=== PATIENT | male | born 1985 | race Caucasian/White ===

== ENCOUNTER 2020-05-25 12:57 | Outpatient (CLI) | payer OTHER, SELFPAY ==
--- NOTE | 2020-05-25 13:10 | XR_ITS ---
WS: [id number] Lumbar spine, 3 views, 05/25/2020 Clinical Data: LOW BACK PAIN Comparison: None. Findings: No compression fractures or subluxation is seen. No disc space narrowing is seen. The transverse proc esses and SI joints are normal. XR/XR lumbar spine 2-3V* [id number] Impression: Negative lumbar spine.
== END 2020-05-25 12:58 | disposition home or self-care (01) ==
LOC: RAD 13:03
PROVIDERS: PCP Family Medicine; Visit Provider Nurse Practitioner
DX: Z13.89 Encounter for screening for other disorder (principal); M54.5 Low back pain
CPT/HCPCS: 72100

== ENCOUNTER 2024-09-19 13:42 | Observation (INO) | payer OTHER, SELFPAY ==
[2024-09-19] VITALS (14 sets, daily range): BP systolic 103–166; BP diastolic 67–107; PULSE 81–161; RESP 12–22; TEMP 36.3–36.9; O2SAT 93–100; BMI 35.9; BMI 36.6
--- NOTE | 2024-09-19 13:45 | ECG_ITS ---
[facility] Test Date: 2024-09-19 Pat Name: Vamshi Reid Department: Room: Gender: Male Automatic Clipper: : 1985 Requested By: Logan Quarles Order Number: [id number] Pardo MD: Nando Jaimes M.D. Measurements Intervals [place]ard Rate: 153 P: 0 HI: 0 QRS: -20 QRSD: 64 T: 56 QT: 254 QTc: 406 Interpretive Statements ATRIAL FIBRILLATION WITH RAPID VENTRICULAR RESPONSE Compared to ECG 11/11/2018 08:43:48 Sinus rhythm no longer present Electronically Signed On 09-19-2024 16:34:12 GAS TURBINE MECHANIC by Nando Jaimes M.D. [email or web address]
--- NOTE | 2024-09-19 13:50 | XR_ITS ---
WS: [id number] Portable AP upright chest, 09/19/2024 Clinical Data: palpitations Comparison: Two-view chest, 11/11/2018 Findings: No nodules, masses or effusions are seen. The heart is normal. The pulmonary vascularity is not increased. No pneumonia or pneumothorax is seen. Monitor leads are on the chest wall. XR/XR chest 1V portable [id number] Impression: Negative chest.
[2024-09-19 13:58] LABS: Basophils % 0.5 %; Eosinophils # 0.1 10^3/uL (0.0-0.8); Eosinophils % 1.6 %; Hematocrit 50.7 % (37-53); Lymphocytes # 2.8 10^3/uL (0.8-4.8); Lymphocytes % 36.5 %; Mean Corpuscular HGB Conc 32.9 g/dL (30-55); Mean Corpuscular Hemoglobin 29.9 pg (27-33); Mean Corpuscular Volume 90.7 fl (82-101); Monocytes # 0.6 10^3/uL (0.2-0.9); Monocytes % 8.3 %; Neutrophils # 4.04 10^3/uL (1.8-7.7); Neutrophils % 52.7 %; Nucleated Red Blood Cells % 0 %; Platelet Count 227 10^3/cmm (157-399); Red Blood Count 5.59 10^6/uL (3.85-5.65); Red Cell Distribution Width 13.2 % (12.1-15.1); White Blood Count 7.67 10^3/uL (3.29-11.43)
--- NOTE | 2024-09-19 14:01 | W.ED.ARRPALP ---
HPI - Arrhythmia/Palpitations General: Chief Complaint: Arrhythmia/Palpitations Stated Complaint: afib (sent by bc) Time Seen by Provider: 09/19/24 13:48 Source: patient Mode of arrival: ambulatory Limitations: no limitations History of Present Illness: 39-year-old male states that he has had cough congestion over the last 2 days. He states he feels like he has the flu and went to an urgent care and they done an EKG he was found to be in A-fib. He has no history of A-fib he is in A-fib with RVR here as well. He denies any vomiting or diarrhea. Associated symptoms: Deny nausea or vomiting Related Data Home Medications Medication Instructions Recorded Confirmed No Known Home Medications 09/19/24 09/19/24 Allergies Allergy/AdvReac Type Severity Reaction Status Date / Time No Known Allergies Allergy Verified 09/19/24 13:51 Review of Systems Const: Reports: fever(s), chills and body aches; Denies: change in appetite ENMT: Denies: throat pain or dental pain Card: Denies: chest pain Resp: Reports: non-productive cough; Denies: dyspnea GI: Denies: abdominal pain, nausea, vomiting or diarrhea Musc: Denies: neck pain or back pain Skin/Breast: Denies: rash Neuro: Denies: headache(s) Physical Exam Const: COMMON NORMALS: no acute distress, patient oriented x3 and healthy appearing HENMT: COMMON NORMALS: normocephalic and atraumatic HEAD & SCALP: normocephalic and atraumatic Neck/C-Spine: COMMON NORMALS: full ROM and supple Chest: COMMONS NORMALS: normal inspection of the chest Resp: COMMON NORMALS: normal respiratory effort Cardio: COMMON NORMALS: No murmurs present (Cardio) RHYTHM: abnormal rhythm irregularly irregular GI: COMMON NORMALS: Normal to inspection, nondistended, normoactive bowel sounds present, Soft to palpation, non-tender and no masses PALPATION: Yes Soft to palpation Extremity: COMMON NORMALS: normal to inspection and full ROM Neuro: COMMON NORMALS: patient oriented x3, moves all extremities and no focal motor deficits Psych: COMMON NORMALS: mental status grossly normal, Normal thought process present and cooperative THOUGHT PROCESS: Normal thought process present Skin: COMMON NORMALS: no rashes or lesions noted and no wounds GENERAL SKIN EXAM: no rashes or lesions noted Course Vital Signs: Vital signs: Vital Signs Temperature 98.4 F 09/19/24 13:49 Pulse Rate 120 H 09/19/24 15:28 Respiratory Rate 17 09/19/24 15:28 Blood Pressure 107/72 09/19/24 15:28 Pulse Oximetry 97 09/19/24 15:28 Oxygen Delivery Me thod Room Air 09/19/24 15:28 MDM - Arrhythmia/Palpitations Medical Decision Making Patient presents here with A-fib with RVR did have a history of on a Cardizem drip he is feeling improved spoke to hospitalist will admit as this is new onset. Medical Records I reviewed the patient's medical records. Lab Data I reviewed the patient's lab results. 09/19/24 13:52 09/19/24 13:52 Radiology Impressions Chest X-Ray 09/19/24 13:50 Impression: Negative chest. Laboratory Results WBC 7.67 10^3/uL (3.29-11.43) 09/19/24 13:52 RBC 5.59 10^6/uL (3.85-5.65) 09/19/24 13:52 Hgb 16.70 g/dL (11.27-16.99) 09/19/24 13:52 Hct 50.7 % (37-53) 09/19/24 13:52 MCV 90.7 fl (82-101) 09/19/24 13:52 MCH 29.9 pg (27-33) 09/19/24 13:52 MCHC 32.9 g/dL (30-55) 09/19/24 13:52 RDW 13.2 % (12.1-15.1) 09/19/24 13:52 Plt Count 227 10^3/cmm (157-399) 09/19/24 13:52 MPV 9.0 fL (7.4-10.4) 09/19/24 13:52 Neut % (Auto) 52.7 % 09/19/24 13:52 Lymph % (Auto) 36.5 % 09/19/24 13:52 Rich % (Auto) 8.3 % 09/19/24 13:52 Eos % (Auto) 1.6 % 09/19/24 13:52 Baso % (Auto) 0.5 % 09/19/24 13:52 Neut # (Auto) 4.04 10^3/uL (1.8-7.7) 09/19/24 13:52 Lymph # (Auto) 2.8 10^3/uL (0.8-4.8) 09/19/24 13:52 Rich # (Auto) 0.6 10^3/uL (0.2-0.9) 09/19/24 13:52 Eos # (Auto) 0.1 10^3/uL (0.0-0.8) 09/19/24 13:52 Baso # (Auto) 0.0 10^3/uL (0.0-0.1) 09/19/24 13:52 Nucleated RBC % (auto) 0 % 09/19/24 13:52 Nucleated RBCs # 0.0 /100WBC 09/19/24 13:52 Sodium 139 mmol/L (136-145) 09/19/24 13:52 Potassium 4.2 mmol/L (3.5-5.1) 09/19/24 13:52 Chloride 101 mmol/L (98-107) 09/19/24 13:52 Carbon Dioxide 26 mmol/L (22-29) 09/19/24 13:52 Anion Gap 16.2 (5-19) 09/19/24 13:52 BUN 19 mg/dL (6-20) 09/19/24 13:52 Creatinine 0.9 mg/dL (0.7-1.2) 09/19/24 13:52 GFR Calculation 94.4 mL/min (90-130) 09/19/24 13:52 Glucose 107 mg/dL (65-115) 09/19/24 13:52 Calculated Osmolality 291 mOsm/kg (285-295) 09/19/24 13:52 Calcium 9.3 mg/dL (8.5-10.5) 09/19/24 13:52 Total Bilirubin 0.4 mg/dL (0.15-1.2) 09/19/24 13:52 AST 27 U/L (0-40) 09/19/24 13:52 ALT 41 U/L (0-41) 09/19/24 13:52 Alkaline Phosphatase 79 U/L (40-130) 09/19/24 13:52 Total Protein 7.6 g/dL (6.6-8.7) 09/19/24 13:52 Albumin 4.6 g/dL (3.5-5.2) 09/19/24 13:52 Globulin 3.0 g/dL (1.3-4.6) 09/19/24 13:52 Coronavirus (PCR) Negative (Negative) 09/19/24 14:05 Influenza A (PCR) Negative (Negative) 09/19/24 14:05 Influenza Type B (PCR) Negative (Negative) 09/19/24 14:05 RSV (PCR) Negative (Negative) 09/19/24 14:05 All radiology interpretation(s) finalized by discharge EKG Data EKG 1: I personally reviewed and interpreted this EKG as follows: EKG interpretation date: 09/19/24 EKG interpretation time: 13:45 Interpretation: afib with rvr hr [address] elevation qrs 64 qtc 341 Other EKG comments: Chest X-Ray 09/19/24 13:50 Impression: Negative chest. Discharge Plan Discharge Patient Disposition: Admitted As Inpatient Clinical Impression: Atrial fibrillation with RVR Condition: Stable Coding Level of Care Code ED Brand Development Manager for Seth Villegas
[2024-09-19] MEDS: dilTIAZem 5 mg/mL SDV 5 mL 20 MG IVP (14:04)
[2024-09-19 14:13] LABS: Alanine Aminotransferase 41 U/L (0-41); Albumin Level 4.6 g/dL (3.5-5.2); Alkaline Phosphatase 79 U/L (40-130); Anion Gap 16.2 (5-19); Aspartate Amino Transferase 27 U/L (0-40); Blood Urea Nitrogen 19 mg/dL (6-20); Calcium 9.3 mg/dL (8.5-10.5); Carbon Dioxide 26 mmol/L (22-29); Chloride 101 mmol/L (98-107); Creatinine Clr Calc Pharmacy 140.3432; Glomerular Filtration Rate 94.4 mL/min (90-130); Glucose 107 mg/dL (65-115); Osmolality Calculated 291 mOsm/kg (285-295); Potassium 4.2 mmol/L (3.5-5.1); Sodium 139 mmol/L (136-145); Total Bilirubin 0.4 mg/dL (0.15-1.2); Total Protein 7.6 g/dL (6.6-8.7)
--- NOTE | 2024-09-19 14:19 | ECG_ITS ---
[facility] Test Date: 2024-09-19 Pat Name: Vamshi Reid Department: Room: Gender: Male Neurosurgical Nurse: : 1985 Requested By: Logan Quarles Order Number: [id number] Char MD: Nando Jaimes M.D. Measurements Intervals [place] Rate: 93 P: 0 ND: 0 QRS: -9 QRSD: 72 T: 46 QT: 318 QTc: 396 Interpretive Statements ATRIAL FIBRILLATION LOW QRS VOLTAGE IN PRECORDIAL LEADS [QRS DEFLECTION < 1.0 mV IN CHEST LEADS] Compared to ECG 09/19/2024 13:45:04 Low QRS voltage now present Electronically Signed On 09-19-2024 16:34:05 SOIL SCIENCE PROFESSOR by Nando Jaimes M.D. [email or web address]
[2024-09-19] MEDS: dilTIAZem 100 MG in sodium chloride 0.9% (add-van) 100 ML IV (14:51)
[2024-09-19 15:02] LABS: Covid PCR NEGATIVE (Negative); Influenza A NEGATIVE (Negative); Influenza B NEGATIVE (Negative); Respiratory Syncytial Virus Ce NEGATIVE (Negative)
--- NOTE | 2024-09-19 15:50 | USCV_ITS ---
Franklin Vamshi Age: 39 Gender: M : 1985 Exam Date: 09/19/2024 19:18 Ordering Phys: Georges Zuniga MD Technologist: JUAN JOSE [place] [facility] [place] new [place]ib, palpitations BP: 123 / 77 HR: 85 Rhythm: Sinus Technical Quality: Adequate MEASUREMENTS (Male / Female) Normal Values 2D ECHO LV Diastolic Diameter PLAX 3.6 cm 4.2 - 5.9 / 3.9 - 5.3 cm IVS Diastolic Thickness 1.7 cm 0.6 - 1.0 / 0.6 - 0.9 cm IVS Systolic Thickness 2.1 cm LVPW Diastolic Thickness 1.2 cm 0.6 - 1.0 / 0.6 - 0.9 cm LVPW Systolic Thickness 1.6 cm LVOT Diameter 2.1 cm LV Ejection Fraction 2D Teich 69.7 % LV Ejection Fraction MOD 4C 54.5 % LV Ejection Fraction MOD 2C 61.0 % LV Ejection Fraction 2C AL 62.8 % LA Diameter 2.3 cm Aorta at Sinotubular Diameter 3.3 cm IVC Diameter 1.6 cm M-MODE LA Ao Ratio MM 0.9 AV Cusp Separation MM 2.3 cm DOPPLER AV Peak Velocity 102.0 cm/s LVOT Peak Velocity 94.0 cm/s AV Area Cont Eq vti 3.8 cm squared AV Area Cont Eq pk 3.2 cm squared MV Peak Velocity 76.0 cm/s MV Area PHT 4.8 cm squared Mitral E to A Ratio 1.3 TV Peak E Velocity 54.0 cm/s PV Peak Velocity 69.0 cm/s FINDINGS Left Ventricle Normal left ventricular size and systolic function, EF 60%. No regional wall motion abnormalities. Right Ventricle The right ventricle is normal in size and function. Right Atrium The right atrium is normal in size. Left Atrium The left atrium is normal in size. Mitral Valve No gross abnormalities noted Aortic Valve No gross abnormalities noted Tricuspid Valve No gross abnormalities noted Pulmonic Valve No gross abnormalities noted Pericardium Normal pericardium without effusion. Aorta Normal ascending aorta dimension. IVC The inferior vena cava appears normal. CONCLUSIONS Normal left ventricular size and systolic function, EF 60%. No regional wall motion abnormalities. Normal cardiac chamber sizes. No gross valvular abnormalities. No intracardiac shunts by color-flow Doppler examination. No pericardial effusion No similar previous studies are available for comparison Dr Yariel Garrido MD [facility] (Electronically Signed) Final Date: 20 September 2024 01:04 S
--- NOTE | 2024-09-19 15:53 | P.HP_ITS ---
Providers/Chief Complaint 2 Chief Complaint: afib (sent by ) History of Present Illness Vamshi Reid is a 39 year old male with no significant past medical history who presents [facility] for chest palpitations. Patient tells me that for the last 10 days he has been dealing with a cough, sinus congestion, he was prescribed prednisone, azithromycin, Tessalon Perles without improvement. He presented to physicians office, when he was found to have atrial fibrillation and sent to [facility] for evaluation. Denies a prior history of atrial fibrillation, denies any Sudafed use, but has been using cough medications. Denies chest pain, denies any shortness of breath no cardiovascular history. He does report drinking 1 glass of alcohol daily, does report possible history of sleep apnea, trouble falling asleep, awakes 12 times a night, has significant snoring, he has gained weight he tells me, denies any drug use Review of Systems 2 Const: Reports: fatigue and malaise Card: Reports: chest pain Resp: Reports: non-productive cough; Denies: dyspnea GI: Denies: abdominal pain Medications/Allergies Home Medications Medication Instructions Recorded Confirmed Last Taken Type No Known Home Medications 09/19/24 09/19/24 Unknown History Allergies Allergy/AdvReac Type Severity Reaction Status Date / Time No Known Allergies Allergy Verified 09/19/24 13:51 PFSH Acute 2 PFSH: Medical History (Updated 09/19/24 @ 15:55 by Georges Zuniga MD) No pertinent past medical history Surgical History (Updated 09/19/24 @ 15:55 by Georges Zuniga MD) No pertinent past surgical history Family History Father CAD (coronary artery disease) Social History (Updated 09/19/24 @ 15:55 by Georges Zuniga MD) Smoking and tobacco/nicotine status: never used tobacco/nicotine Alcohol intake: current Alcohol intake frequency: 0-2 Drinks per Day Substance/Drug Use: never Vitals/I&O/Wt Last Vital Signs Temp 98.4 F 09/19/24 13:49 Pulse 120 H 09/19/24 15:28 Resp 17 09/19/24 15:28 BP 107/72 09/19/24 15:28 Pulse Ox 97 09/19/24 15:28 O2 Del Method Room Air 09/19/24 15:28 09/19/24 09/19/24 09/19/24 06:59 14:59 22:59 Intake Total 3.167 / 3.167 Balance 3.167 / 3.167 Weight last 48 hrs Weight 113.398 kg Physical Exam 2 Const: COMMON NORMALS: no acute distress and patient oriented x3 HENMT: COMMON NORMALS: normocephalic HEAD & SCALP: normocephalic Neck/C-Spine: COMMON NORMALS: no JVD Resp: COMMON NORMALS: normal respiratory effort, No retractions, No use of accessory muscles and clear to auscultation bilaterally AUSCULTATION: clear to auscultation bilaterally Cardio: COMMON NORMALS: regular rate, regular rhythm, S1 normal heart sound present and S2 normal heart sound present RATE: tachycardic RHYTHM: a bnormal rhythm irregularly irregular HEART SOUNDS: S1 normal heart sound present and S2 normal heart sound present GI: COMMON NORMALS: Normal to inspection, nondistended, normoactive bowel sounds present, Soft to palpation and non-tender Extremity: COMMON NORMALS: no calf tenderness and no pedal edema Neuro: COMMON NORMALS: patient oriented x3, CN's II-XII intact bilaterally and moves all extremities Psych: COMMON NORMALS: mental status grossly normal Data 09/19/24 13:52 09/19/24 13:52 A&P Assessment and plan (1) Atrial fibrillation with RVR: Plan Atrial fibrillation with rapid ventricular response Plan -Continue Cardizem drip ? Transition to p.o. Cardizem ? TSH # Troponin series # Cardiac echo ? Aspirin ? Lovenox for DVT prophylaxis Full code Attestations 2 Medical Necessity Statement*: Patient requires hospitalization for atrial fibrillation with rapid regular response, outpatient with observation Diagnoses Atrial fibrillation with RVR I48.91
[2024-09-19 15:55] LABS: Troponin(5th) Baseline 7 ng/L (0-15)
[2024-09-19 16:10] LABS: INR 0.92 (0.8-1.2)
[2024-09-19 16:34] LABS: NT Pro B Type Natriuretic Pept 177 pg/mL (0-125); Procalcitonin 0.05 ng/mL (0-0.5); Thyroid Stimulating Hormone 3.77 uIU/mL (0.27-4.20)
[2024-09-19 16:36] LABS: Troponin 5 2HR 6.84 ng/L (0-15)
[2024-09-19 16:38] LABS: Troponin 5 2HR Delta -0.16 ABS# (0-10)
[2024-09-19] MEDS: aspirin 81 mg EC Tablet PO (17:00)
[2024-09-19] MEDS: dilTIAZem 30 mg Tablet PO ×2 (17:00→22:09)
[2024-09-19] MEDS: pantoprazole 40 mg SDV IVP (17:01)
[2024-09-19] MEDS: enoxaparin 40 mg/0.4 mL Syringe SUBCUT (17:01)
--- NOTE | 2024-09-19 17:14 | ECG_ITS ---
[facility] Date: 2024-09-19 Pat Name: Vamshi Reid Department: Room: ICU02 Gender: Male Electronic News Gathering Camera Person: : 1985 Requested By: Logan Quarles Order Number: [id number] Char MD: Yariel Garrido M.D. Measurements Intervals Anita Rate: 105 P: 0 [place]: 0 QRS: -11 QRSD: 74 T: 46 QT: 311 QTc: 413 Interpretive Statements ATRIAL FIBRILLATION WITH RAPID VENTRICULAR RESPONSE ABNORMAL RHYTHM ECG Compared to ECG 09/19/2024 14:19:48 No significant changes Electronically Signed On 09-20-2024 17:52:31 PRORATE CLERK by Yariel Garrido M.D. [id number]
[2024-09-19 17:19] LABS: Chol HDL Ratio 4.52 mg/dL (1.0-5.00); Cholesterol 226 mg/dL (0-200); HDL Cholesterol 50 mg/dL (60-100); LDL Cholesterol Calculated 139 mg/dL (50-129); LDL HDL Ratio 2.78 RATIO (0.00-3.22); Triglycerides 184 mg/dL (0-150)
--- NOTE | 2024-09-19 18:00 | PC.NURSE ---
PATIENT REFUSES CHANGE INTO GOWN PRIOR TO ICU ARRIVAL. NURSE EDUCATES PATIENT WILL HAVE TO CHANGE WHEN GETTING TO ICU, PATIENT VERBALIZED OK. PATIENT ASSESSMENTS DONE. PATIENT DENIES SKIN ISSUES OR ANY OTHER AREAS OF IMMEDIATE CONCERN. PATIENT STATES DOES FEEL RELIEF FROM CHEST PRESSURE, JUST TIRED.
[2024-09-19 19:21] LABS: Bilirubin Urine Negative (Negative); Blood Urine Negative (Negative); Glucose Urine UA 2+ (Normal); Ketones Urine Trace (Negative); Leukocyte Esterase Urine Negative (Negative); Nitrate Urine Negative (Negative); Protein Urine Trace (Negative); Specific Gravity, Urine 1.028 (1.005-1.030); Urine Appearance Clear (CLEAR); Urine Color Yellow (Yellow); pH Urine 5.5 (5-7)
[2024-09-19 19:23] LABS: Add Urine Microscopic? YES; Bacteria Urine None Seen /hpf; Hyaline Casts Urine 1.21 /lpf; RBC Urine 0-2 /hpf (0-2); Squamous Epithelial Cell Urine 0-5 /hpf (0-5); WBC Urine 0-5 /hpf (0-5)
[2024-09-19 19:39] LABS: Estmated Average Glucose 134; Hemoglobin A1C 6.3 % (4.0-6.0)
[2024-09-19] MEDS: dilTIAZem 100 MG in sodium chloride 0.9% (add-van) 100 ML 7.5 MG IV (23:58)
[2024-09-20] VITALS (14 sets, daily range): BP systolic 103–144; BP diastolic 67–102; PULSE 72–102; RESP 15–32; TEMP 36.4–37; O2SAT 86–98
--- NOTE | 2024-09-20 00:29 | PC.NURSE ---
Patient's O2 sats dropping to 85%. Patient is snoring. Asked patient to turn to his side. Saturations coninued in the 80 intermitantly. Patient still snoring while lying on his left side. Patient fitted with nasal cannula at 2.
[2024-09-20] MEDS: dilTIAZem 30 mg Tablet PO ×2 (04:10→10:54)
[2024-09-20 05:07] LABS: Basophils # 0.1 10^3/uL (0.0-0.1); Basophils % 0.8 %; Eosinophils # 0.2 10^3/uL (0.0-0.8); Eosinophils % 2.4 %; Hematocrit 45.4 % (37-53); Lymphocytes # 2.3 10^3/uL (0.8-4.8); Lymphocytes % 34.9 %; Mean Corpuscular HGB Conc 32.4 g/dL (30-55); Mean Corpuscular Hemoglobin 30.2 pg (27-33); Mean Corpuscular Volume 93.4 fl (82-101); Mean Platelet Volume 9.5 fL (7.4-10.4); Monocytes # 0.6 10^3/uL (0.2-0.9); Monocytes % 9.5 %; Neutrophils # 3.46 10^3/uL (1.8-7.7); Neutrophils % 51.9 %; Nucleated Red Blood Cells % 0.3 %; Platelet Count 173 10^3/cmm (157-399); Red Blood Count 4.86 10^6/uL (3.85-5.65); Red Cell Distribution Width 13.2 % (12.1-15.1); White Blood Count 6.65 10^3/uL (3.29-11.43)
[2024-09-20 05:35] LABS: Anion Gap 13.3 (5-19); Blood Urea Nitrogen 23 mg/dL (6-20); Calcium 8.7 mg/dL (8.5-10.5); Carbon Dioxide 26 mmol/L (22-29); Chloride 105 mmol/L (98-107); Creatinine Clr Calc Pharmacy 141.9815; Glomerular Filtration Rate 94.4 mL/min (90-130); Glucose 101 mg/dL (65-115); Osmolality Calculated 294 mOsm/kg (285-295); Potassium 4.3 mmol/L (3.5-5.1); Sodium 140 mmol/L (136-145)
[2024-09-20] MEDS: aspirin 81 mg EC Tablet PO (08:34)
--- NOTE | 2024-09-20 11:09 | P.DS_ITS ---
Discharge Providers Date of Admission: 09/19/24 16:00 Date of Discharge: September 20, 2024 Attending Provider at Admission: Georges Zuniga MD Attending Provider at Discharge: Georges Zuniga MD Diagnoses at Discharge Discharge Diagnosis (1) Atrial fibrillation with RVR: Status: Acute Reason for Visit Reason for Visit: afib (sent by ) Hospital Course Hospital Course Vamshi Reid is a 39 year old male with no significant past medical history who presents [facility] for chest palpitations. Patient tells me that for the last 10 days he has been dealing with a cough, sinus congestion, he was prescribed prednisone, azithromycin, Tessalon Perles without improvement. He presented to physicians office, when he was found to have atrial fibrillation and sent to [facility] for evaluation. Denies a prior history of atrial fibrillation, denies any Sudafed use, but has been using cough medications. Denies chest pain, denies any shortness of breath no cardiovascular history. He does report drinking 1 glass of alcohol daily, does report possible history of sleep apnea, trouble falling asleep, awakes 12 times a night, has significant snoring, he has gained weight he tells me, denies any drug use Patient was admitted to [facility] for A-fib with RVR, managed on a Cardizem drip, converted to normal sinus rhythm, will be discharged on Cardizem p.o. 120 mg daily, aspirin 81 mg daily, follow-up with cardiology as outpatient. For his obesity, discussed diet control measures, weight loss measures, medications to help with weight loss For suspected obstructive sleep apnea, follow-up with primary care provider for consideration of sleep study as this could be a contributing factor to his atrial fibrillation, decreased energy, prediabetes, weight gain. Discussed weight loss strategies, healthy eating, A1c 6.3, prediabetic, discussed weight control measures, diabetic medications to help reduce the risk of progressing to type 2 diabetes Elevated LDL, triglycerides, cholesterol, follow-up with primary care provider as outpatient Physical Exam Const: COMMON NORMALS: no acute distress and patient oriented x3 Resp: COMMON NORMALS: normal respiratory effort, No retractions, No use of accessory muscles and clear to auscultation bilaterally AUSCULTATION: clear to auscultation bilaterally Cardio: COMMON NORMALS: regular rate, regular rhythm, S1 normal heart sound present and S2 normal heart sound present RATE: regular rate RHYTHM: regular rhythm HEART SOUNDS: S1 normal heart sound present and S2 normal heart sound present GI: COMMON NORMALS: Normal to inspection, nondistended, normoactive bowel sounds present and non-tender Extremity: COMMON NORMALS: no pedal edema Neuro: COMMON NORMALS: patient oriented x3 Psych: COMMON NORMALS: mental status grossly normal Discharge Data Studies Completed and Pending Completed Studies During Hospitalization Category Date Time Status XR chest 1V portable [id number] Stat Exams 09/19/24 13:50 Completed CV. echo complete* [id number] Stat Ultrasound 09/19/24 15:50 Completed Pending at discharge Category Date Time Status Basic Metabolic Panel AM LABS Lab 09/21/24 04:00 Ordered Basic Metabolic Panel AM LABS Lab 09/22/24 04:00 Ordered Complete Blood Count w/Auto AM LABS Lab 09/21/24 04:00 Ordered Complete Blood Count w/Auto AM LABS Lab 09/22/24 04:00 Ordered Radiology Impressions Chest X-Ray 09/19/24 13:50 Impression: Negative chest. Laboratory Results WBC 6.65 10^3/uL (3.29-11.43) 09/20/24 04:14 RBC 4.86 10^6/uL (3.85-5.65) 09/20/24 04:14 Hgb 14.70 g/dL (11.27-16.99) 09/20/24 04:14 Hct 45.4 % (37-53) 09/20/24 04:14 MCV 93.4 fl (82-101) 09/20/24 04:14 MCH 30.2 pg (27-33) 09/20/24 04:14 MCHC 32.4 g/dL (30-55) 09/20/24 04:14 RDW 13.2 % (12.1-15.1) 09/20/24 04:14 Plt Count 173 10^3/cmm (157-399) 09/20/24 04:14 MPV 9.5 fL (7.4-10.4) 09/20/24 04:14 Neut % (Auto) 51.9 % 09/20/24 04:14 Lymph % (Auto) 34.9 % 09/20/24 04:14 [place] % (Auto) 9.5 % 09/20/24 04:14 Eos % (Auto) 2.4 % 09/20/24 04:14 Baso % (Auto) 0.8 % 09/20/24 04:14 Neut # (Auto) 3.46 10^3/uL (1.8-7.7) 09/20/24 04:14 Lymph # (Auto) 2.3 10^3/uL (0.8-4.8) 09/20/24 04:14 [place] # (Auto) 0.6 10^3/uL (0.2-0.9) 09/20/24 04:14 Eos # (Auto) 0.2 10^3/uL (0.0-0.8) 09/20/24 04:14 Baso # (Auto) 0.1 10^3/uL (0.0-0.1) 09/20/24 04:14 Nucleated RBC % (auto) 0.3 % 09/20/24 04:14 Nucleated RBCs # 0.0 /100WBC 09/20/24 04:14 PT 12.60 SECONDS (12.1-14.9) 09/19/24 13:52 INR 0.92 (0.8-1.2) 09/19/24 13:52 Sodium 140 mmol/L (136-145) 09/20/24 04:14 Potassium 4.3 mmol/L (3.5-5.1) 09/20/24 04:14 Chloride 105 mmol/L (98-107) 09/20/24 04:14 Carbon Dioxide 26 mmol/L (22-29) 09/20/24 04:14 Anion Gap 13.3 (5-19) 09/20/24 04:14 BUN 23 mg/dL (6-20) H 09/20/24 04:14 Creatinine 0.9 mg/dL (0.7-1.2) 09/20/24 04:14 GFR Calculation 94.4 mL/min (90-130) 09/20/24 04:14 Glucose 101 mg/dL (65-115) 09/20/24 04:14 Estimat Average Glucose 134 09/19/24 13:52 Hemoglobin A1c 6.3 % (4.0-6.0) H 09/19/24 13:52 Calculated Osmolality 294 mOsm/kg (285-295) 09/20/24 04:14 Calcium 8.7 mg/dL (8.5-10.5) 09/20/24 04:14 Total Bilirubin 0.4 mg/dL (0.15-1.2) 09/19/24 13:52 AST 27 U/L (0-40) 09/19/24 13:52 ALT 41 U/L (0-41) 09/19/24 13:52 Alkaline Phosphatase 79 U/L (40-130) 09/19/24 13:52 Troponin T Baseline 7 ng/L (0-15) 09/19/24 13:52 Troponin T 120 Minute 6.84 ng/L (0-15) 09/19/24 15:57 Delta Troponin T -0.16 ABS# (0-10) L 09/19/24 15:57 Troponin T Hi Sens 6Hr 7.70 ng/L (0-15) 09/19/24 19:35 Troponin T Hi Sens 6Hr Delta 0.70 ng/L (0-12) 09/19/24 19:35 C-Reactive Protein 3.0 mg/L (0.0-4.9) 09/19/24 13:52 NT-Pro-B Natriuret Pep 177 pg/mL (0-125) H 09/19/24 13:52 Total Protein 7.6 g/dL (6.6-8.7) 09/19/24 13:52 Albumin 4.6 g/dL (3.5-5.2) 09/19/24 13:52 Globulin 3.0 g/dL (1.3-4.6) 09/19/24 13:52 Triglycerides 184 mg/dL (0-150) H 09/19/24 13:52 Cholesterol 226 mg/dL (0-200) H 09/19/24 13:52 LDL Cholesterol, Calc 139 mg/dL (50-129) H 09/19/24 13:52 HDL Cholesterol 50 mg/dL (60-100) L 09/19/24 13:52 LDL/HDL Ratio 2.78 RATIO (0.00-3.22) 09/19/24 13:52 Cholesterol/HDL Ratio 4.52 mg/dL (1.0-5.00) 09/19/24 13:52 Procalcitonin 0.05 ng/mL (0-0.5) 09/19/24 13:52 TSH 3.77 uIU/mL (0.27-4.20) 09/19/24 13:52 Urine Color Yellow (Yellow) 09/19/24 18:45 Urine Appearance Clear (CLEAR) 09/19/24 18:45 Urine pH 5.5 (5-7) 09/19/24 18:45 Ur Specific [place] 1.028 (1.005-1.030) 09/19/24 18:45 Urine Protein Trace (Negative) A 09/19/24 18:45 Urine Glucose (UA) 2+ (Normal) H 09/19/24 18:45 Urine Ketones Trace (Negative) 09/19/24 18:45 Urine Blood Negative (Negative) 09/19/24 18:45 Urine Nitrate Negative (Negative) 09/19/24 18:45 Urine Bilirubin Negative (Negative) 09/19/24 18:45 Urine Urobilinogen 1.0 mg/dL (Negative) 09/19/24 18:45 Ur Leukocyte Esterase Negative (Negative) 09/19/24 18:45 Urine RBC 0-2 /hpf (0-2) 09/19/24 18:45 Urine WBC 0-5 /hpf (0-5) 09/19/24 18:45 Ur Squamous Epith Cells 0-5 /hpf (0-5) 09/19/24 18:45 Amorphous Sediment Not Reportable 09/19/24 18:45 Urine Bacteria None seen /hpf (NONE) 09/19/24 18:45 Hyaline Casts 1.21 /lpf 09/19/24 18:45 Coronavirus (PCR) Negative (Negative) 09/19/24 14:05 Influenza A (PCR) Negative (Negative) 09/19/24 14:05 Influenza Type B (PCR) Negative (Negative) 09/19/24 14:05 RSV (PCR) Negative (Negative) 09/19/24 14:05 Vitals Last Vital Signs Temp 98.6 F 09/20/24 08:00 Pulse 77 09/20/24 08:00 Resp 23 H 09/20/24 08:00 BP 117/91 09/20/24 08:00 Pulse Ox 93 09/20/24 06:00 O2 Del Method Room Air 09/19/24 19:00 Discharge Plan Discharge Patient Disposition: Home Condition: Stable Prescriptions: New diltiazem HCl [Cardizem LA] 120 mg tablet extended release 24 hr 120 mg PO DAILY 30 Days Qty: 30 0RF aspirin 81 mg Tablet,Delayed Release (Dr/Ec) 81 mg PO DAILY 30 Days Qty: 30 0RF No Action No Known Home Medications Discharge Orders: Discharge Order (Routine); Ordered 09/20/24 Ordered By: Georges Zuniga Referrals: Mejia Quick [Other] - 09/26/24 2:40 pm Viviane Hwang MD [Physician] - 1 week Discharge Diet: Cardiac Discharge Activity: Resume usual activity Patient Instructions: Diabetes and Diet, A-fib (Atrial Fibrillation) (ED), A- fib (Atrial Fibrillation) (DC), A-fib (Atrial Fibrillation) (GEN), Sleep Apnea (GEN), Prediabetes (GEN), Opioid Safety, Mediterranean Diet (DC) Activity Restrictions/Additional Instructions: - If you have any recurrent chest pain or palpitations go to the emergency room -Please use Cardizem as prescribed -Please follow-up with primary care, you need to have a sleep study for sleep apnea -You are prediabetic with A1c of 6.3, diet controlled measures discussed with primary care provider about possibly trying metformin, or Ozempic or Jardiance to decrease your risk of progressing to type 2 diabetes, helping with weight loss -Please adhere to diabetic diet, -Lifestyle modification -Your cholesterol is 226, triglycerides are 184, LDL is 139, diet controlled measures, avoiding fatty food, low-salt, heart healthy diet Discharge Attestations Time Spent in Discharge Care*: greater than 30 min Quality Metrics Clinical Quality Measures [ No reported AMI, CVA or VTE this stay] Coding Level of Care Code 69317 Total time (in minutes) for Discharge: 45 Diagnoses Atrial fibrillation with RVR I48.91
--- NOTE | 2024-09-20 13:16 | PC.NURSE ---
patient ambulated out of unit with spouse. All iv lines and monitoring equipment removed before discharge. Patient discharge in stable condition
== END 2024-09-20 13:10 | disposition home or self-care (01) ==
LOC: ER 15:46 → ER IP 16:31 → ICU 18:21 → ER IP 09-20 06:36
PROVIDERS: Admitting Provider Family Medicine; Emergency Provider Emergency Medicine; Visit Provider Family Medicine
DX: I48.91 Unspecified atrial fibrillation (principal); E66.9 Obesity, unspecified; Z68.36 Body mass index [BMI] 36.0-36.9, adult; R73.03 Prediabetes; Z82.49 Family history of ischemic heart disease and other diseases of the circulatory system; G47.8 Other sleep disorders
CPT/HCPCS: 36415; 71045; 80048; 80053; 80061; 81001; 83036; 83880; 84145; 84443; 84484; 85025; 85610; 86140; 87637; 93005; 93306; 94664; 96365; 96366; 96372; 96374; 96375; 96376; 99291; G0378; J1650; J2470; J3490

== ENCOUNTER 2024-10-18 11:32 | Outpatient (CLI) | payer OTHER, SELFPAY | END 2024-10-18 11:33 | disposition home or self-care (01) | LOC: SLEEP 11:33 | PROVIDERS: PCP Pediatrics; Visit Provider Internal Medicine Cardiovascular Disease | DX: G47.33 Obstructive sleep apnea (adult) (pediatric) (principal); G47.36 Sleep related hypoventilation in conditions classified elsewhere | CPT/HCPCS: G0399 ==